=== PATIENT | male | born 1975 | race Native Hawaiian/Other Pacific Islander ===

== ENCOUNTER → 2023-09-06 | Outpatient (CLI) | payer OTHER ==
[2023-09-06 17:34] LABS: HEMATOCRIT 48.3 % (42.0-52.0); HEMOGLOBIN 16.4 g/dl (13.5-18.0); MEAN CELL VOLUME 94 fl (80.0-100.0); MEAN CORPUSCULAR HEMOGLOBIN 32 pg (27-31); MEAN CORPUSCULAR HGB CONC 34 g/dl (33.0-37.0); MEAN PLATELET VOLUME 10.8 fl (7.4-10.4); PLATELET COUNT 168 K/mm3 (130-400); RED BLOOD COUNT 5.14 M/mm3 (4.20-5.60); REDCELL DISTRIBUTION WIDTH-CV 12.1 % (11.5-14.5)
[2023-09-06 17:46] LABS: ANION GAP 9 mmol/L (7-16); BLOOD UREA NITROGEN 10 mg/dL (9-21); CALCIUM 9.4 mg/dL (8.4-10.2); CHLORIDE 107 mEq/L (98-107); CREATINE KINASE 170 U/L (30-200); CREATININE, serum 0.87 mg/dL (0.72-1.25); GLUCOSE 99 mg/dL (70-99); SODIUM 143 mEq/L (136-145)
[2023-09-06 17:54] LABS: TROPONIN-I < 0.010 ng/mL (0.00-0.033)
== END ==
LOC: COL.RAD 16:42
PROVIDERS: Internal Medicine
DX: Z12.5 Encounter for screening for malignant neoplasm of prostate (principal); M50.30 Other cervical disc degeneration, unspecified cervical region; M16.0 Bilateral primary osteoarthritis of hip; I10 Essential (primary) hypertension